=== PATIENT | male | born 1995 | race African-American/Black ===

== ENCOUNTER 2019-06-26 21:37 | Emergency (ER) | payer OTHER ==
[~2019-06-26] VITALS: Ht 170.2 cm; Wt 68.0 kg
[~2019-06-26 21:37] MED LIST: KEPPRA 500 MG500 M1 PO; NOHOMEMEDICATIONS
[2019-06-26] MEDS ORDERED: LEXAPRO 10 MG T10 M2 PO (21:54)
[2019-06-26] MEDS ORDERED: WELLBUTRIN 75 M75 M1 PO (21:55)
[2019-06-26] MEDS ORDERED: SEROQUEL200 MG PO (21:55)
[2019-06-26 22:29] LABS: HEMATOCRIT 45.5 % (42.0-52.0); HEMOGLOBIN 14.7 gm/dL (14.0-18.0); MCH 26.6 pg (26.0-34.0); MCHC 32.4 g/dL (28.0-37.0); MCV 82.3 fL (80.0-100.0); RBC 5.53 mil/uL (4.50-6.00); RDW 15.2 % (10.5-14.5); WBC 5.7 thou/uL (4.0-11.0)
[2019-06-26 22:37] LABS: ANION GAP 9 mmol/L (7-16); BUN 14 mg/dL (7-18); CALCIUM 8.9 mg/dL (8.5-10.1); CHLORIDE 103 mmol/L (98-107); CO2 26 mmol/L (21-32); CREATININE 1.3 mg/dL (0.7-1.3); GLUCOSE 141 mg/dL (74-106); POTASSIUM 3.3 mmol/L (3.5-5.1); SALICYLATE < 2.8 mg/dL (2.8-20.0); SODIUM 138 mmol/L (136-145)
[2019-06-26 23:11] LABS: AMP/METHAMP POSITIVE (Negative); BARBITURATES Negative (Negative); BENZODIAZEPINES Negative (Negative); COCAINE Negative (Negative); METHADONE Negative (Negative); OPIATES Negative (Negative); PCP Negative (Negative)
--- NOTE | 2019-06-27 08:46 | EKG ---
[facility] [place] [address] ELECTROCARDIOGRAM REPORT Name: OLI TEJEDA Room #: REG [facility].#: [id number] Admission: 06/26/19 Attend Phys: Discharge: Date of : 89 Report #: [id number] THIS REPORT FOR: cc: WAYLON - Cindy family physician/PCP WAYLON - Cindy family physician/PCP Osei Dean MD [facility] ~ THIS REPORT FOR: //name// [facility] ED Test Date: 2019-06-26 Test Time: 22:08:10 Pat Name: OLI TEJEDA Department: Room: Gender: M Integration Developer: KEN : 1995 Requested By: Liv Mercer Order Number: [id number] MD: Osei Dean Measurements Intervals [place] Rate: 94 P: 84 NH: 136 QRS: 78 QRSD: 87 T: 34 QT: 334 QTc: 418 Interpretive Statements Sinus rhythm No significant abnormality Compared to ECG 02/22/2014 09:02:59 No significant change was found Electronically Signed On 06-27-2019 8:45:42 [employer] by Osei Dean [email or web address] <ELECTRONICALLY SIGNED> By: Osei Dean MD, [facility] 06/27/1947 07 07 Osei Dean MD, [facility] /EPI
[2019-06-28 11:48] VITALS: BP 110/62
== END 2019-06-28 11:49 ==
LOC: ER 21:37
PROVIDERS: Emergency Medicine
DX: R45.851 Suicidal ideations (principal); G89.29 Other chronic pain; M54.5 Low back pain; F19.10 Other psychoactive substance abuse, uncomplicated; Z79.899 Other long term (current) drug therapy

== ENCOUNTER 2020-02-18 05:38 | Emergency (ER) | payer OTHER ==
[~2020-02-18] VITALS: Ht 162.6 cm; Wt 70.3 kg
[2020-02-18 07:34] LABS: URINE BILIRUBIN NEGATIVE (Negative); URINE BLOOD NEGATIVE (Negative); URINE CLARITY CLEAR; URINE COLOR YELLOW; URINE GLUCOSE-RANDOM* NEGATIVE (Negative); URINE KETONES NEGATIVE (Negative); URINE LEUKOCYTES-REFLEX NEGATIVE (Negative); URINE NITRITE-REFLEX NEGATIVE (Negative); URINE PROTEIN (DIPSTICK) NEGATIVE (Negative); URINE UROBILINOGEN 0.2 E.U./dl (0.2-1.0)
[2020-02-18 07:41] LABS: AMP/METHAMP POSITIVE (Negative); BARBITURATES Negative (Negative); BENZODIAZEPINES Negative (Negative); COCAINE Negative (Negative); METHADONE Negative (Negative); OPIATES Negative (Negative); PCP Negative (Negative)
[2020-02-18 08:24] LABS: HEMATOCRIT 44.7 % (42.0-52.0); HEMOGLOBIN 14.3 gm/dL (14.0-18.0); MCH 26.2 pg (26.0-34.0); MCHC 32.1 g/dL (28.0-37.0); MCV 81.8 fL (80.0-100.0); RBC 5.47 mil/uL (4.50-6.00); RDW 15.9 % (10.5-14.5); WBC 8.6 thou/uL (4.0-11.0)
[2020-02-18 08:39] LABS: ANION GAP 11 mmol/L (7-16); BUN 10 mg/dL (7-18); CALCIUM 9.5 mg/dL (8.5-10.1); CHLORIDE 103 mmol/L (98-107); CO2 28 mmol/L (21-32); CREATININE 1.4 mg/dL (0.7-1.3); GLUCOSE 111 mg/dL (74-106); POTASSIUM 3.4 mmol/L (3.5-5.1); SODIUM 142 mmol/L (136-145)
[2020-02-18 08:43] LABS: SALICYLATE < 2.8 mg/dL (2.8-20.0)
[2020-02-18 11:24] VITALS: BP 109/82
== END 2020-02-18 11:25 | disposition home or self-care (01) ==
LOC: ER 05:38
PROVIDERS: Emergency Medicine
DX: R44.2 Other hallucinations (principal); F15.10 Other stimulant abuse, uncomplicated; F32.9 Major depressive disorder, single episode, unspecified; F17.210 Nicotine dependence, cigarettes, uncomplicated; Z79.899 Other long term (current) drug therapy; Z88.8 Allergy status to other drugs, medicaments and biological substances

== ENCOUNTER → 2020-02-18 | Emergency (ER) | payer OTHER ==
[~2020-02-18] VITALS: Ht 175.3 cm; Wt 74.8 kg
[~2020-02-18] MED LIST changes: +LEXAPRO 10 MG T10 M2 PO; +SEROQUEL200 MG PO; +WELLBUTRIN 75 M75 M1 PO
[2020-02-18 23:48] LABS: ABSOLUTE NEUTROPHILS 3.7 thou/uL (1.4-8.2); BASOPHILS 0.8 % (0.0-2.0); EOSINOPHILS 0.4 % (0.0-3.0); HEMATOCRIT 43.4 % (42.0-52.0); LYMPHOCYTES 27.5 % (24.0-44.0); MCH 26.5 pg (26.0-34.0); MCHC 32.2 g/dL (28.0-37.0); MCV 82.1 fL (80.0-100.0); MONOCYTES 10.6 % (1.0-8.0); PLATELET COUNT 221 thou/uL (150-400); POLYS 60.7 % (36.0-66.0); RBC 5.29 mil/uL (4.50-6.00); RDW 15.8 % (10.5-14.5); WBC 6.1 thou/uL (4.0-11.0)
[2020-02-18 23:51] LABS: URINE BILIRUBIN NEGATIVE (Negative); URINE BLOOD NEGATIVE (Negative); URINE CLARITY CLEAR; URINE COLOR YELLOW; URINE GLUCOSE-RANDOM* NEGATIVE (Negative); URINE KETONES NEGATIVE (Negative); URINE LEUKOCYTES-REFLEX NEGATIVE (Negative); URINE NITRITE-REFLEX NEGATIVE (Negative); URINE PROTEIN (DIPSTICK) NEGATIVE (Negative); URINE SPECIFIC GRAVITY >= 1.030 (1.005-1.035); URINE UROBILINOGEN 0.2 E.U./dl (0.2-1.0)
[2020-02-18 23:52] LABS: CALCIUM 9.6 mg/dL (8.5-10.1); CREATININE 1.4 mg/dL (0.7-1.3); POTASSIUM 3.8 mmol/L (3.5-5.1)
[2020-02-18 23:59] LABS: AMP/METHAMP POSITIVE (Negative); BARBITURATES Negative (Negative); BENZODIAZEPINES Negative (Negative); COCAINE Negative (Negative); METHADONE Negative (Negative); OPIATES Negative (Negative); PCP Negative (Negative)
[2020-02-19 00:02] LABS: ALBUMIN 4.2 g/dL (3.4-5.0); TOTAL BILIRUBIN 0.4 mg/dL (0.2-1.0); TOTAL PROTEIN 7.6 g/dL (6.4-8.2)
[2020-02-19 12:04] VITALS: BP 154/100
== END ==
LOC: ER 22:55
PROVIDERS: Emergency Medicine
DX: R45.851 Suicidal ideations (principal); F32.9 Major depressive disorder, single episode, unspecified; F20.9 Schizophrenia, unspecified; F17.210 Nicotine dependence, cigarettes, uncomplicated; Z88.8 Allergy status to other drugs, medicaments and biological substances